=== PATIENT | female | born 1985 | race Caucasian/White ===

== ENCOUNTER → 2024-11-15 08:18 | Outpatient (REF) | payer OTHER, SELFPAY ==
--- NOTE | 2024-11-15 14:15 | OID.BR.INTR ---
[facility] - Initial
- -
Date of Contact: 11/15/24
Met with patient. Patient given written information on navigator services available at [facility]. Will follow up as needed per protocol.
== END ==
LOC: WDC 08:18
PROVIDERS: ATTENDING PHYSICIAN Surgery; FAMILY PHYSICIAN Internal Medicine
DX: N63.10 Unspecified lump in the right breast, unspecified quadrant (principal); N63.20 Unspecified lump in the left breast, unspecified quadrant
CPT/HCPCS: 88305; 19083; 88341; 88342; A4648